=== PATIENT | male | born 1975 | race Caucasian/White ===

== ENCOUNTER 2025-11-04 23:40 | Emergency (ER) | payer OTHER ==
[~2025-11-04] VITALS: Ht 170.2 cm; Wt 74.4 kg
[2025-11-04 23:49] VITALS: BP 146/81
[2025-11-05] MEDS ORDERED: CYCL5TAB4 PO (00:24)
[2025-11-05] MEDS ORDERED: NAPR-1194 PO (00:24)
[2025-11-05 00:43] VITALS: BP 146/81; O2SAT 96
== END 2025-11-05 00:43 | disposition home or self-care (01) ==
LOC: ER 23:58
DX: S70.12XA Contusion of left thigh, initial encounter (principal); X58.XXXA Exposure to other specified factors, initial encounter; Y93.89 Activity, other specified; Y92.89 Other specified places as the place of occurrence of the external cause; Y99.9 Unspecified external cause status
CPT/HCPCS: A4606; A4663